=== PATIENT | male | born 1980 | race Asian ===

== ENCOUNTER 2017-10-22 03:58 | Emergency (ER) | payer OTHER ==
[~2017-10-22] VITALS: Ht 172.7 cm; Wt 79.4 kg
[2017-10-22 04:20] VITALS: BP_SYST 139
[2017-10-22] MEDS ORDERED: LevALBUTEROL HCL 1.25 MG/0.5 ML *CONC.* VIAL.NEB (XOPENEX CONC.) INH ONE (04:45)
[2017-10-22] MEDS ORDERED: IPRATROPIUM BROM 0.5 MG/2.5 ML VIAL.NEB (ATROVENT) IH ONE (04:45)
[2017-10-22 05:28] VITALS: BP_SYST 124
== END 2017-10-22 05:28 | disposition home or self-care (01) ==
LOC: SED 03:58
DX: R06.02 Shortness of breath (principal); J45.909 Unspecified asthma, uncomplicated
CPT/HCPCS: 94640; 99283; J7612